=== PATIENT | female | born 1995 | race Caucasian/White ===

== ENCOUNTER 2023-02-23 14:29 | Emergency (ER) | payer MEDICAID ==
[~2023-02-23] VITALS: Ht 157.5 cm; Wt 52.2 kg
[2023-02-23] MEDS ORDERED: MECLIZINE 25 MG TAB PO ONE (14:45)
[2023-02-23] MEDS ORDERED: METOCLOPRAMIDE 10 MG/2 ML INJ VIAL IVP ONE (14:45)
[2023-02-23] MEDS ORDERED: NACL 0.9% 1,000 ML IV ONE (14:45)
[2023-02-23 14:46] VITALS: BP 120/74; PULSE 94; RESP 17; TEMP 97.1; O2SAT 98
[2023-02-23 15:08] LABS: BASOPHILS # (AUTO) 0.1 K/uL (0.00-0.22); BASOPHILS % (AUTO) 1.2 % (0.0-2.0); EOSINOPHILS % (AUTO) 0.4 % (0.0-4.0); HEMATOCRIT 35.5 % (36-48); HEMOGLOBIN 11.9 g/dL (12.0-16.0); LYMPHOCYTES # (AUTO) 1.5 K/uL (2.5-16.5); LYMPHOCYTES % (AUTO) 26.4 % (20.5-51.1); MEAN CORPUSCULAR HEMOGLOBIN 28 pg (27-31); MEAN CORPUSCULAR HGB CONC 34 g/dL (33-37); MEAN CORPUSCULAR VOLUME 82.6 fL (80-94); MONOCYTES # (AUTO) 0.6 K/uL (0.8-1.0); MONOCYTES % (AUTO) 9.9 % (1.7-9.3); NEUTROPHILS # (AUTO) 3.6 K/uL (1.8-7.7); NEUTROPHILS % (AUTO) 62.1 % (42.2-75.2); PLATELET COUNT (AUTO) 165 K/uL (140-450); RED BLOOD CELL COUNT(AUTO) 4.29 MIL/uL (4.20-5.40); RED CELL DISTRIBUTION WIDTH 13.6 % (11.6-13.7); WHITE BLOOD COUNT (AUTO) 5.8 K/uL (4.8-10.8)
--- NOTE | 2023-02-23 15:14 | NUR ---
27YO F PRESENTS W/DIZZINESS, CASTELLANOS, N, V, D X 4 DAYS. PT STATES SHE FEELS LIKE THE ROOM IS SPINNING. SEEN IN [facility] AND [place] W/ZOFRAN 4MG W/O RELIED. PT DENIES FEVER, CHILLS, FLU SYMPTOMS, URINARY SYMPTOMS, INJURY. PT A0X4, AMBULATES W/STEADY GAIT, NAD NOTED, ON [employer], SAFETY MAINTAINED. CALL LIGHT IN REACH. HX:DENIES NKA
[2023-02-23 15:42] LABS: ANION GAP 8.6 (8-16); CARBON DIOXIDE 30.2 mmol/L (21-32); CREATININE 0.6 mg/dL (0.6-1.3); POTASSIUM 3.8 mmol/L (3.5-5.1)
[2023-02-23] MEDS ORDERED: MECL-303 PO (16:01)
--- NOTE | 2023-02-23 16:02 | NUR ---
Spoke to Phil Zhu LVN and stated that NaCl 0.9 1L bolus started at 1502 and stopped at 1602.
--- NOTE | 2023-02-23 16:36 | NUR ---
Patient discharged with v/s stable. Written and verbal after care instructions given and explained. Patient alert, oriented and verbalized understanding of instructions. Ambulatory with steady gait. All questions addressed prior to discharge. ID band removed. Patient advised to follow up with PMD. Rx of ANTIVERT given. Opportunity to ask questions provided and answered.
--- NOTE | 2023-02-23 16:39 | NUR ---
The patient's care was reviewed and supervised by [facility], RN.
== END 2023-02-23 16:39 | disposition home or self-care (01) ==
LOC: MED 14:29
DX: R42 Dizziness and giddiness (principal); R11.2 Nausea with vomiting, unspecified; Z79.899 Other long term (current) drug therapy
CPT/HCPCS: 36415; 80048; 84703; 85025; 96361; 96374; 99283; J2765; J7030; J8597